=== PATIENT | female | born 1960 | race Caucasian/White ===

== ENCOUNTER 2017-05-28 13:05 | Emergency (ER) | payer OTHER, SELFPAY ==
[2017-05-28] MEDS ORDERED: Ibuprofen 800 MG TAB ONE (13:42)
== END 2017-05-28 13:48 | disposition home or self-care (01) ==
LOC: NAV ERS 13:05
DX: M54.5 Low back pain (principal); I10 Essential (primary) hypertension; Z79.899 Other long term (current) drug therapy; X50.0XXA Overexertion from strenuous movement or load, initial encounter; Y99.0 Civilian activity done for income or pay
CPT/HCPCS: 99283